=== PATIENT | male | born 1990 | race Asian ===

== ENCOUNTER 2024-09-11 11:19 | Emergency (ER) | payer BC, SELFPAY ==
[2024-09-11 11:38] VITALS: BP 148/89; PULSE 83; RESP 18; TEMP 37.2; O2SAT 98; BMI 27.5
--- NOTE | 2024-09-11 13:14 | EDNOTE_ITS ---
ED General RME/HPI General Chief complaint: Dental/Oral/Throat Stated complaint: headache, neck pain, jaw pain x4 days Time Seen by Provider: 09/11/24 11:22 Arrival date/time: 09/11/24 11:19 34-year-old male with no significant medical problems presents emergency department with complaints of head pain, neck pain, back pain, generalized bodyaches ongoing x 4 days patient reports no fever no difficulty with moving his neck no dizziness or weakness Limitations: no limitations Related Data Previous Rx's ?Medication ?Instructions ?Recorded ondansetron 4 mg disintegrating 4 mg PO Q8H PRN nausea and 11/11/22 tablet vomiting #15 tabs cetirizine 10 mg tablet (Zyrtec) 10 mg PO QDAY PRN allergy symptoms 12/13/23 #10 tabs tobramycin 0.3 % eye drops 2 drp ophthalmic (eye) Q4H #5 mL 12/13/23 cyclobenzaprine 10 mg tablet 10 mg PO TID PRN muscle spasm 10 09/11/24 days #30 tab-caps ibuprofen 800 mg tablet 800 mg PO TID PRN pain #30 tabs 09/11/24 Allergies Allergy/AdvReac Type Severity Reaction Status Date / Time No Known Allergies Allergy Verified 09/11/24 11:21 Review of Systems Review of Systems Systems Reviewed: All systems reviewed, normal except as documented Constitutional Constitutional: Reports system reviewed and no additional complaints, except as documented, Reports body ache(s), Denies fatigue, Denies fever(s) and Reports headache(s) Eyes Eyes: Reports system reviewed and no additional complaints, except as documented and Denies blurry vision ENT Ears, Nose, Mouth, and Throat: Reports system reviewed and no additional comp laints, except as documented, Reports headache(s), Denies nasal congestion, Denies nasal discharge and Reports neck pain Cardiovascular Cardiovascular: Reports system reviewed and no additional complaints, except as documented, Denies chest pain and Denies dyspnea Respiratory Respiratory: Reports system reviewed and no additional complaints, except as documented, Denies chest congestion, Denies cough and Denies dyspnea Gastrointestinal Gastrointestinal: Reports system reviewed and no additional complaints, except as documented and Denies abdominal pain Musculoskeletal Musculoskeletal: Reports neck pain Integumentary/Breasts Skin/Breast: Reports system reviewed and no additional complaints, except as documented and Denies rash Neurologic Neurologic: Reports system reviewed and no additional complaints, except as documented, Reports as per HPI and Reports headache(s) Endocrine Endocrine: Denies fatigue Past Medical History Past Medical History NEUROLOGIC: Negative Neurological Disorders CARDIAC: Negative Cardiac Disorders ED Exam General Limitations: Present no limitations General appearance: Present alert and in no apparent distress Head Head exam: Present atraumatic, normocephalic and normal inspection Eye Eye exam: Present normal appearance, PERRL and EOMI; Absent conjunctival injection ENT ENT exam: Present normal exam, normal oropharynx and mucous membranes moist Neck Neck exam: Present normal inspection, full ROM, trachea midline and other (Pain with movement of the neck [id number]); Absent tenderness, meningismus, lymphadenopathy or thyromegaly Chest Chest inspection: Present normal inspection and symmetric chest wall rise; Abs ent tenderness Respiratory Respiratory exam: Present normal lung sounds bilaterally; Absent respiratory distress or wheezes Cardiovascular Cardiovascular exam: Present regular rate, normal rhythm and normal heart sounds Abdominal Exam Abdominal exam: Present soft and normal bowel sounds; Absent distention, tenderness, guarding, rebound or rigidity Extremities Exam Extremities exam: Present normal inspection and full ROM Back Exam Back exam: Present normal inspection and full ROM Neurological Exam Neurological exam: Present alert, oriented X3 and CN II-XII intact Psychiatric Psychiatric exam: Present normal affect and normal mood Skin Skin exam: Present warm, dry, intact and normal color Course Quality Measures none Vital Signs Vital signs: Vital Signs Temperature 99.0 F 09/11/24 11:38 Pulse Rate 83 09/11/24 11:38 Respiratory Rate 18 09/11/24 11:38 Blood Pressure 148/89 H 09/11/24 11:38 Pulse Oximetry (%) 98 09/11/24 11:38 Oxygen Delivery Method Room Air 09/11/24 11:38 O2 saturation 98% room air within normal limits MDM Patient data External records reviewed:: [facility] previous records Clinical information provided by:: patient Social determinants that could affect healthcare access:: none Patient has the following chronic illnesses:: None How is presenting disease/condition affected by chronic disease/condition?: no chronic disease Evaluation data The following diagnostics were reviewed and interpreted by me:: other (specify) (N/A) Lab and/or radiology exams considered but not ordered:: Consider not ordered Interpretation Summary: N/A Medications Medications considered but not ordered:: Given Medication administrations:: Given Consultations Consultation(s) initiated? (list below): No Diagnosis Differential Diagnosis ED Complaint MDM: Viral illness, URI, headache, body aches Most likely diagnosis given after review of the tests above:: Muscle strain Admission Indicated Admission indicated?: not indicated Explain why admission is indicated or not indicated:: No criteria Admission Request Was there a request for admission?: No Disposition Plan Disposition Plan: Discharge Discharge Attestation Discharge Attestation: The patient and all family members were given an opportunity to ask questions and understood the discharge instructions. Discharge instructions specifically effects, indications for sooner follow up or return to the emergency department, and the expected course of current diagnosis. Patient condition: Stable Medical Decision Making MDM Narrative MDM Narrative: 34-year-old male with no significant medical problems presents emergency department with complaints of head pain, neck pain, back pain, generalized body aches ongoing x 4 days patient reports no fever no difficulty with moving his neck no dizziness or weakness On exam patient well-appearing patient does not appear ill or toxic and in no acute distress Symptoms are very nonspecific patient does report pain with movement but no objective abnormality Patient has no meningeal signs, moves his neck freely and without pain no nystagmus I suspect patient's process is viral versus muscular or perhaps a bit of both Patient discharged home in no distress to follow-up with primary care doctor in the next 24 to 48 hours and for any worsening symptoms to return to the ER immediately Differential Diagnosis Differential Diagnosis: Viral illness, URI, headache, body aches Medical Records Medical records reviewed: Yes I reviewed the patient's medical records. Discharge Plan Plan Patient Disposition: HOME (Self Care) Disposition Comment: Stable Prescriptions/Referrals Prescriptions/Med Rec: New cyclobenzaprine 10 mg tablet 10 mg PO TID PRN (Reason: muscle spasm) 10 Days Qty: 30 0RF ibuprofen 800 mg tablet 800 mg PO TID PRN (Reason: pain) Qty: 30 0RF No Action ondansetron 4 mg tablet,disintegrating 4 mg PO Q8H PRN (Reason: nausea and vomiting) Qty: 15 0RF tobramycin 0.3 % drops 2 drp ophthalmic (eye) Q4H Qty: 5 0RF cetirizine [Zyrtec] 10 mg tablet 10 mg PO QDAY PRN (Reason: allergy symptoms) Qty: 10 0RF Problem List Clinical Impression: Neck muscle strain Patient/Caregiver Discharge Instructions Additional Instructions: Please follow up with your primary care doctor in the next 24-48hrs for any worsening symptoms return here immediately If you develop any worsening concerns please return immediately for further evaluation Print Language: Persian Stand Alone Forms: Kimmie Award Info., Work/School Release, Patient Portal Info Letter PA/VOCATIONAL REHAB CONSULTANT Supervising Physician PA/VOCATIONAL REHAB CONSULTANT Supervising Physician: Dr oliver
== END 2024-09-11 11:52 | disposition home or self-care (01) ==
LOC: SERX 11:53
PROVIDERS: Emergency Provider Emergency Medicine; PCP Family Medicine
DX: S16.1XXA Strain of muscle, fascia and tendon at neck level, initial encounter (principal); X58.XXXA Exposure to other specified factors, initial encounter
CPT/HCPCS: 99281

== ENCOUNTER 2024-10-18 18:13 | Emergency (ER) | payer BC, SELFPAY ==
[2024-10-18 18:52] VITALS: BP 149/90; PULSE 100; RESP 18; TEMP 37.2; O2SAT 96; BMI 27.1
--- NOTE | 2024-10-18 20:54 | PD.EDUPEX ---
Upper Extremity Injury RME/HPI General Chief Complaint: Extremity Injury, Upper Stated Complaint: Left arm pain since yesterday Time Seen by Provider: 10/18/24 18:54 Arrival date/time: 10/18/24 18:13 34M with no significant PMH presents to ED with L forearm pain with movement. Patient denies fall/trauma. Patient works at [employer]. Limitations: no limitations Related Data Previous Rx's ?Medication ?Instructions ?Recorded ondansetron 4 mg disintegrating 4 mg PO Q8H PRN nausea and 11/11/22 tablet vomiting #15 tabs cetirizine 10 mg tablet (Zyrtec) 10 mg PO QDAY PRN allergy symptoms 12/13/23 #10 tabs tobramycin 0.3 % eye drops 2 drp ophthalmic (eye) Q4H #5 mL 12/13/23 ibuprofen 800 mg tablet 800 mg PO TID PRN pain #30 tabs 09/11/24 Allergies Allergy/AdvReac Type Severity Reaction Status Date / Time No Known Allergies Allergy Verified 10/18/24 18:17 Review of Systems Review of Systems Systems Reviewed: All systems reviewed, normal except as documented Constitutional Constitutional: Reports system reviewed and no additional complaints, except as documented, Denies fever(s) and Denies headache(s) ENT Ears, Nose, Mouth, and Throat: Denies disequilibrium and Denies headache(s) Cardiovascular Cardiovascular: Reports system reviewed and no additional complaints, except as documented, Denies chest pain and Denies dyspnea Respiratory Respiratory: Reports system reviewed and no additional complaints, except as documented, Denies cough and Denies dyspnea Gastrointestinal Gastrointestinal: Reports system reviewed and no additional complaints, except as documented, Denies abdominal pain, Denies nausea and Denies vomiting Musculoskeletal Musculoskeletal: Reports as per HPI and Reports other (myalgia) Neurologic Neurologic: Reports system reviewed and no additional complaints, except as documented, Denies confusion, Denies disequilibrium and Denies headache(s) Psychiatric Psychiatric: Denies confusion Past Medical History Past Medical History NEUROLOGIC: Negative Neurological Disorders CARDIAC: Negative Cardiac Disorders Social History SMOKING STATUS: Current every day smoker ED Exam General Limitations: Present no limitations General appearance: Present alert and in no apparent distress Head Head exam: Present atraumatic Eye Eye exam: Present normal appearance, PERRL and EOMI ENT ENT exam: Present normal exam, normal oropharynx and mucous membranes moist Neck Neck exam: Present normal inspection, full ROM and trachea midline Chest Chest inspection: Present normal inspection and symmetric chest wall rise Respiratory Respiratory exam: Present normal lung sounds bilaterally Cardiovascular Cardiovascular exam: Present regular rate, normal rhythm and normal heart sounds Abdominal Exam Abdominal exam: Present soft and normal bowel sounds Extremities Exam Extremities exam: Present full ROM Expanded Upper Extremity Exam Forearm/Wrist exam: Present full ROM (L) and tenderness Back Exam Back exam: Present normal inspection and full ROM Neurological Exam Neurological exam: Present alert, oriented X3 and CN II-XII intact Psychiatric Psychiatric exam: Present normal affect and normal mood Skin Skin exam: Present warm, dry, intact and normal color Course Quality Measures none Vital Signs Vital signs: Vital Signs Temperature 99 F 10/18/24 18:52 Pulse Rate 100 10/18/24 18:52 Respiratory Rate 18 10/18/24 18:52 Blood Pressure 149/90 H 10/18/24 18:52 Pulse Oximetry (%) 96 10/18/24 18:52 Oxygen Delivery Method Room Air 10/18/24 18:52 O2 at 96% on RA and WNLs Extremity Injury MDM Narrative MDM Narrative:: 34M with no significant PMH presents to ED with L forearm pain with movement. Patient denies fall/trauma. Patient works at [employer]. Physical exam reveals some L forearm tenderness, but no swelling. ROM intact. Patient is afebrile, calm, and alert. Likely MSK-related. Patient also has compression garment. Patient data External records reviewed:: [facility] previous records Clinical information provided by:: patient Social determinants that could affect healthcare access:: none Patient has the following chronic illnesses:: none How is presenting disease/condition affected by chronic disease/condition?: no chronic disease Evaluation data The following diagnostics were reviewed and interpreted by me:: other (specify) (none) Lab and/or radiology exams considered but not ordered:: not ordered Interpretation Summary: n/a Medications / Prescriptions Medications or Prescriptions considered but not ordered:: not ordered Medication administrations:: n/a Consultations Consultation(s) initiated? (list below): No Diagnosis Upper Extremity Injury Differential Diagnosis: sprain and strain of wrist, fracture of wrist, finger sprain, dislocation of finger, Colles' fracture, fracture of hand and other (muscle strain) Most likely diagnosis given after review of the tests above:: muscle strain Admission Indicated Admission indicated?: not indicated Admission Request Was there a request for admission?: No Disposition Plan Disposition Plan: Discharge Discharge Attestation Discharge Attestation: The patient and all family members were given an opportunity to ask questions and understood the discharge instructions. Discharge instructions specifically effects, indications for sooner follow up or return to the emergency department, and the expected course of current diagnosis. Patient condition: Stable Discharge Plan Plan Patient Disposition: HOME (Self Care) Disposition Comment: Stable Prescriptions/Referrals Prescriptions/Med Rec: No Action ondansetron 4 mg tablet,disintegrating 4 mg PO Q8H PRN (Reason: nausea and vomiting) Qty: 15 0RF tobramycin 0.3 % drops 2 drp ophthalmic (eye) Q4H Qty: 5 0RF cetirizine [Zyrtec] 10 mg tablet 10 mg PO QDAY PRN (Reason: allergy symptoms) Qty: 10 0RF ibuprofen 800 mg tablet 800 mg PO TID PRN (Reason: pain) Qty: 30 0RF Problem List Clinical Impression: Muscle strain Patient/Caregiver Discharge Instructions Education Materials: ED Muscle Strain, Extremity Additional Instructions: Please follow-up with PCP within 24-48 hours and return immediately if symptoms worsen. If problem persists, recommend outpatient PT and/or MRI follow-up. In the meantime, rest, use ice/heat, and/or compression. Print Language: Armenian Stand Alone Forms: Work/School Release, Patient Portal Info Letter JULIANO/TREV Supervising Physician JULIANO/TREV Supervising Physician: Dr. Augustin
== END 2024-10-18 18:58 | disposition home or self-care (01) ==
LOC: SERX 19:03
PROVIDERS: Emergency Provider Emergency Medicine; PCP Family Medicine
DX: S56.912A Strain of unspecified muscles, fascia and tendons at forearm level, left arm, initial encounter (principal); X58.XXXA Exposure to other specified factors, initial encounter
CPT/HCPCS: 99281

== ENCOUNTER 2024-11-06 19:48 | Emergency (ER) | payer BC, SELFPAY ==
[2024-11-06 19:50] VITALS: BMI 26.9
--- NOTE | 2024-11-06 19:53 | EKG_ITS ---
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
[2024-11-06 20:05] VITALS: BP 136/84; PULSE 87; RESP 16; TEMP 36.9; O2SAT 99
[2024-11-06] MEDS: METOCLOPRAMIDE 5 MG TABLET PO (20:44)
[2024-11-06] MEDS: DIAZEPAM 5 MG TABLET PO (20:44)
--- NOTE | 2024-11-07 00:11 | PD.EDANX ---
ED Anxiety RME/HPI General Chief Complaint: Weakness Stated Complaint: WEAKNESS, LIGHTHEADED, NAUSEA X TODAY Time Seen by Provider: 11/06/24 20:17 Arrival date/time: 11/06/24 19:48 34M with history smoking/alcohol use presents to ED with 1 day of lightheadedness and N/V today. Then patient coughed 3 times and had R lower rib/ab pain. Patient last drank alcohol 2 days ago. Patient denies fall/trauma, URI symptoms, and SOB. Limitations: no limitations Related Data Previous Rx's ?Medication ?Instructions ?Recorded ondansetron 4 mg disintegrating 4 mg PO Q8H PRN nausea and 11/11/22 tablet vomiting #15 tabs cetirizine 10 mg tablet (Zyrtec) 10 mg PO QDAY PRN allergy symptoms 12/13/23 #10 tabs tobramycin 0.3 % eye drops 2 drp ophthalmic (eye) Q4H #5 mL 12/13/23 ibuprofen 800 mg tablet 800 mg PO TID PRN pain #30 tabs 09/11/24 Allergies Allergy/AdvReac Type Severity Reaction Status Date / Time No Known Allergies Allergy Verified 11/06/24 19:52 Review of Systems Review of Systems Systems Reviewed: All systems reviewed, normal except as documented Constitutional Constitutional: Reports system reviewed and no additional complaints, except as documented, Denies fever(s) and Denies headache(s) ENT Ears, Nose, Mouth, and Throat: Reports as per HPI, Denies disequilibrium, Denies headache(s) and Reports vertigo Cardiovascular Cardiovascular: Reports system reviewed and no additional complaints, except as documented, Denies chest pain and Denies dyspnea Respiratory Respiratory: Reports system reviewed and no additional complaints, except as documented, Reports as per HPI, Reports cough, Denies dyspnea and Reports pain with cough Gastrointestinal Gastrointestinal: Reports system reviewed and no additional complaints, except as documented, Reports as per HPI, Denies abdominal pain, Reports nausea and Reports vomiting Neurologic Neurologic: Reports system reviewed and no additional complaints, except as documented, Denies confusion, Denies disequilibrium, Denies headache(s) and Reports vertigo Psychiatric Psychiatric: Denies confusion Past Medical History Past Medical History NEUROLOGIC: Negative Neurological Disorders CARDIAC: Negative Cardiac Disorders Social History SMOKING STATUS: Current some day smoker ED Exam General Limitations: Present no limitations General appearance: Present alert and in no apparent distress Head Head exam: Present atraumatic Eye Eye exam: Present normal appearance, PERRL and EOMI ENT ENT exam: Present normal exam, normal oropharynx and mucous membranes moist Neck Neck exam: Present normal inspection, full ROM and trachea midline Chest Chest inspection: Present symmetric chest wall rise and tenderness (R lower rib) Respiratory Respiratory exam: Present normal lung sounds bilaterally Cardiovascular Cardiovascular exam: Present regular rate, normal rhythm and normal heart sounds Abdominal Exam Abdominal exam: Present soft and normal bowel sounds Extremities Exam Extremities exam: Present normal inspection and full ROM Back Exam Back exam: Present normal inspection and full ROM Neurological Exam Neurological exam: Present alert, oriented X3 and CN II-XII intact Psychiatric Psychiatric exam: Present normal affect and normal mood Skin Skin exam: Present warm, dry, intact and normal color Course Quality Measures none Orders Category Date Time Status EKG (ED ONLY) *Do not use* NOW Care 11/06/24 19:53 Completed EKG (ED Only) Stat Exams 11/06/24 19:53 Draft Diazepam [Valium] Med 11/06/24 20:17 Discontinued 5 mg PO X1 ONE Metoclopramide [Reglan] Med 11/06/24 20:17 Discontinued 5 mg PO X1 ONE Vital Signs Vital signs: Vital Signs Temperature 98.5 F 11/06/24 20:05 Pulse Rate 87 11/06/24 20:05 Respiratory Rate 16 11/06/24 20:05 Blood Pressure 136/84 H 11/06/24 20:05 Pulse Oximetry (%) 99 11/06/24 20:05 Oxygen Delivery Method Room Air 11/06/24 20:05 Anxiety MDM Narrative MDM Narrative: 34M with history smoking/alcohol use presents to ED with 1 day of lightheadedness and N/V today. Then patient coughed 3 times and had R lower rib/ab pain. Patient last drank alcohol 2 days ago. Patient denies fall/trauma, URI symptoms, and SOB. Physical exam reveals R lower rib tenderness, but clear lungs. RRR. Normal pupil response and EOM. Patient is afebrile, alert, but mildly action. EKG is NSR. Valium improved symptoms. Likely due to anxiety/alcohol use/mild withdrawal and/or MSK pain from cough. Health Coordinator given. Patient declines CXR. Patient data External records reviewed:: [facility] previous records Clinical information provided by:: patient Social determinants that could affect healthcare access:: alcohol use Patient has the following chronic illnesses:: none How is presenting disease/condition affected by chronic disease/condition?: no chronic disease Evaluation data The following diagnostics were reviewed and interpreted by me:: EKG tracing(s) Lab and/or radiology exams considered but not ordered:: ordered Interpretation Summary: above Medications / Prescriptions Medications or Prescriptions considered but not ordered:: ordered Medication administrations:: Medication Administration History Discontinued Medications Diazepam (Diazepam 5 Mg Tablet) 5 mg PO X1 ONE Stop: 11/06/24 20:18 Last Admin: 11/06/24 20:44 Dose: 5 mg Documented By: Metoclopramide HCl (Metoclopramide 5 Mg Tablet) 5 mg PO X1 ONE Stop: 11/06/24 20:18 Last Admin: 11/06/24 20:44 Dose: 5 mg Documented By: Consultations Consultation(s) initiated? (list below): No Diagnosis Differential diagnosis anxiety: hyperventilation, panic disorder, acute anxiety and other (biliary disease, CAP, drug adverse effect/reaction, PE, ACS) Most likely diagnosis given after review of the tests above:: drug adverse effect/reaction Admission Indicated Admission indicated?: not indicated Admission Request Was there a request for admission?: No Disposition Plan Disposition Plan: Discharge Discharge Attestation Discharge Attestation: The patient and all family members were given an opportunity to ask questions and understood the discharge instructions. Discharge instructions specifically effects, indications for sooner follow up or return to the emergency department, and the expected course of current diagnosis. Patient condition: Stable Discharge Plan Plan Patient Disposition: HOME (Self Care) Disposition Comment: STable Prescriptions/Referrals Prescriptions/Med Rec: No Action ondansetron 4 mg tablet,disintegrating 4 mg PO Q8H PRN (Reason: nausea and vomiting) Qty: 15 0RF tobramycin 0.3 % drops 2 drp ophthalmic (eye) Q4H Qty: 5 0RF cetirizine [Zyrtec] 10 mg tablet 10 mg PO QDAY PRN (Reason: allergy symptoms) Qty: 10 0RF ibuprofen 800 mg tablet 800 mg PO TID PRN (Reason: pain) Qty: 30 0RF Referrals: Arnoldo Cabrera MD [Primary Care Provider] - In 1 week Problem List Clinical Impression: Adverse drug reaction Patient/Caregiver Discharge Instructions Additional Instructions: Please follow-up with PCP within 24-48 hours and return immediately if symptoms worsen. Stop smoking/drinking. Print Language: Sri Lankan Stand Alone Forms: Patient Portal Info Letter PA/CONCRETE MIXING PLANT LABORER Supervising Physician PA/CONCRETE MIXING PLANT LABORER Supervising Physician: Dr. Lowry
== END 2024-11-06 21:35 | disposition home or self-care (01) ==
PROVIDERS: Emergency Provider Emergency Medicine; PCP Family Medicine
DX: R11.2 Nausea with vomiting, unspecified (principal); T50.905A Adverse effect of unspecified drugs, medicaments and biological substances, initial encounter; R53.1 Weakness; R42 Dizziness and giddiness
CPT/HCPCS: 93005; 99283; A9270

== ENCOUNTER 2025-04-23 11:12 | Emergency (ER) | payer BC, SELFPAY ==
--- NOTE | 2025-04-23 11:23 | XR_ITS ---
Examination: PA lateral chest 2 views TECHNIQUE: Upright PA lateral chest 2 views Date and time: April 23, 2025 1123 hours INDICATIONS: Coughing beginning 3 days ago. FINDINGS: Normal heart size. Lungs are clear. The osseous structures are intact IMPRESSION: No active disease
[2025-04-23 11:37] VITALS: BP 128/79; PULSE 96; RESP 16; TEMP 37.2; O2SAT 99; BMI 25.8
--- NOTE | 2025-04-23 13:51 | EDNOTE_ITS ---
<Statement entered by Zehra Guadarrama MD - 05/03/25 11:09> As co-signing physician, I was present and available for consult prn. I concur with the plan and care as documented by the midlevel provider. Upper Respiratory Inf. RME/HPI General Chief Complaint: Flu Like Symptoms Stated Complaint: COUGH X 3DAYS Time Seen by Provider: 04/23/25 11:22 Arrival date/time: 04/23/25 11:12 35-year-old male presents to the emergency department today for complaints of cough ongoing x 3 days Limitations: no limitations Related Data Previous Rx's ?Medication ?Instructions ?Recorded ondansetron 4 mg disintegrating 4 mg PO Q8H PRN nausea and 11/11/22 tablet vomiting #15 tabs cetirizine 10 mg tablet (Zyrtec) 10 mg PO QDAY PRN all ergy symptoms 12/13/23 #10 tabs tobramycin 0.3 % eye drops 2 drp ophthalmic (eye) Q4H #5 mL 12/13/23 ibuprofen 800 mg tablet 800 mg PO TID PRN pain #30 t abs 09/11/24 albuterol sulfate 90 mcg/actuation 2 puff inhalation Q 6H PRN 04/23/25 aerosol inhaler (Ventolin HFA) shortness of breath or wheezing #8.5 grams benzonatate 100 mg capsule 100 mg PO TID #14 caps 11/12 prednisone 10 mg tablet 30 mg (3 x 10 mg) PO BID 3 d ays 04/23/25 #18 tabs Allergies Allergy/AdvReac Type Severity Reaction Status Date / Time No Known Allergies Allergy Verified 04/23/25 11:13 Review of Systems Review of Systems Systems Reviewed: All systems reviewed, normal except as documented Constitutional Constitutional: Reports system reviewed and no additional complaints, except as documented, Denies fever(s) and Denies headache(s) Eyes Eyes: Reports system reviewed and no additional complaints, except as documented and Denies blurry vision ENT Ears, Nose, Mouth, and Throat: Reports system reviewed and no additional complaints, except as documented, Denies headache(s), Denies nasal congestion and Denies nasal discharge Cardiovascular Cardiovascular: Reports system reviewed and no additional complaints, except as documented, Denies chest pain and Denies dyspnea Respiratory Respiratory: Reports system reviewed and no additional complaints, except as documented, Reports chest congestion, Reports cough and Denies dyspnea Gastrointestinal Gastrointestinal: Reports system reviewed and no additional complaints, except as documented and Denies abdominal pain Integumentary/Breasts Skin/Breast: Reports system reviewed and no additional complaints, except as documented and Denies rash Neurologic Neurologic: Reports system reviewed and no additional complaints, except as documented, Reports as per HPI and Denies headache(s) Past Medical History Past Medical History NEUROLOGIC: Negative Neurological Disorders CARDIAC: Negative Cardiac Disorders Social History SMOKING STATUS: Current every day smoker ED Exam General Limitations: Present no limitations General appearance: Present alert and in no apparent distress Head Head exam: Present atraumatic, normocephalic and normal inspection Eye Eye exam: Present normal appearance, PERRL and EOMI; Absent conjunctival injection ENT ENT exam: Present normal exam, normal oropharynx and mucous membranes moist Neck Neck exam: Present normal inspection, full ROM and trachea midline Chest Chest inspection: Present normal inspection and symmetric chest wall rise Respiratory Respiratory exam: Present normal lung sounds bilaterally; Absent respiratory distress, wheezes, stridor, accessory muscle use or prolonged expiratory phase Cardiovascular Cardiovascular exam: Present regular rate, normal rhythm and normal heart sounds Abdominal Exam Abdominal exam: Present soft and normal bowel sounds; Absent distention, tenderness, guarding, rebound or rigidity Extremities Exam Extremities exam: Present normal inspection and full ROM Back Exam Back exam: Present normal inspection and full ROM Neurological Exam Neurological exam: Present alert, oriented X3 and CN II-XII intact Psychiatric Psychiatric exam: Present normal affect and normal mood Skin Skin exam: Present warm, dry, intact and normal color Course Quality Measures none Orders Category Date Time Status Bedside COVID-19 Antigen Test NOW Care 04/23/25 11:23 Completed Bedside Influenza A&B Antigen Test NOW Care 04/23/25 11:23 Completed XR chest 2V Stat Exams 04/23/25 11:23 Completed Vital Signs Vital signs: Vital Signs Temperature 99.0 F 04/23/25 11:37 Pulse Rate 96 04/23/25 11:37 Respiratory Rate 16 04/23/25 11:37 Blood Pressure 128/79 04/23/25 11:37 Pulse Oximetry (%) 99 04/23/25 11:37 Oxygen Delivery Method Room Air 04/23/25 11:37 O2 saturation 9 9% on room air within normal limits and Upper Respiratory Infection MDM Narrative MDM Narrative:: 35-year-old male presents to the emergency department today for complaints of cough ongoing x 3 days On exam patient does not appear toxic no acute distress Symptoms highly consistent with URI Patient for flu COVID both which are negative Chest x-ray obtained no acute pneumonic infiltrates noted. Patient has no tachypnea or dyspnea no increased of breathing Patient discharged home in no distress to follow-up with primary care doctor in the next 24 to 48 hours and for any worsening symptoms to return to the ER immediately Patient data External records reviewed:: [facility] previous records Clinical information provided by:: patient Social determinants that could affect healthcare access:: none Patient has the following chronic illnesses:: None How is presenting disease/condition affected by chronic disease/condition?: no chronic disease Evaluation data The following diagnostics were reviewed and interpreted by me:: lab results and radiology exam(s) Lab and/or radiology exams considered but not ordered:: Reviewed by me Interpretation Summary: Given Medications / Prescriptions Medications or Prescriptions considered but not ordered:: Given Medication administrations:: Given Consultations Consultation(s) initiated? (list below): No Diagnosis Upper Respiratory Differential Diagnosis: upper respiratory infection, otitis media, sinusitis, viral infection and bronchitis Most likely diagnosis given after review of the tests above:: URI Admission Indicated Admission indicated?: not indicated Admission Request Was there a request for admission?: No Disposition Plan Disposition Plan: Discharge Discharge Attestation Discharge Attestation: The patient and all family members were given an opportunity to ask questions and understood the discharge instructions. Discharge instructions specifically effects, indications for sooner follow up or return to the emergency department, and the expected course of current diagnosis. Patient condition: Stable Discharge Plan Plan Patient Disposition: HOME (Self Care) Discharge Disposition comment: Stable Prescriptions/Referrals Prescriptions/Med Rec: New prednisone 10 mg tablet 30 mg PO BID 3 Days Qty: 18 0RF benzonatate 100 mg capsule 100 mg PO TID Qty: 14 0RF albuterol sulfate [Ventolin HFA] 90 mcg/actuation HFA aerosol inhaler 2 puff inhalation Q6H PRN (Reason: shortness of breath or wheezing) Qty: 8.5 0RF No Action ondansetron 4 mg tablet,disintegrating 4 mg PO Q8H PRN (Reason: nausea and vomiting) Qty: 15 0RF tobramycin 0.3 % drops 2 drp ophthalmic (eye) Q4H Qty: 5 0RF cetirizine [Zyrtec] 10 mg tablet 10 mg PO QDAY PRN (Reason: allergy symptoms) Qty: 10 0RF ibuprofen 800 mg tablet 800 mg PO TID PRN (Reason: pain) Qty: 30 0RF Referrals: No Primary/Family,Physician [Primary Care Provider] - 04/24/25 Problem List Clinical Impression: Upper respiratory infection Patient/Caregiver Discharge Instructions Education Materials: ED URI, Viral, No Abx (Adult) Additional Instructions: Please follow up with your primary care doctor in the next 24-48hrs for any worsening symptoms return here immediately Print Language: [place] Stand Alone Forms: Kimmie Award Info., Work/School Release, Patient Portal Info Letter PA/BAROMETERS CALIBRATOR Supervising Physician PA/BAROMETERS CALIBRATOR Supervising Physician: Dr. guadarrama
== END 2025-04-23 14:06 | disposition home or self-care (01) ==
PROVIDERS: Emergency Provider Emergency Medicine
DX: J06.9 Acute upper respiratory infection, unspecified (principal)
CPT/HCPCS: 71046; 87400; 87811; 99283